=== PATIENT | female | born 1985 | race Caucasian/White ===

== ENCOUNTER → 2017-01-24 08:23 | Outpatient (CLI) | payer BC ==
--- NOTE | 2017-01-24 09:48 | NUR ---
Nutrition education for bariatric surgery post-op: S: Pt states she has been heavy all her adult life. Pt also states her 11 year old daughter is starting to fruit or nut picker her bad eating habits and is now starting to gain too much weight. Pt has already bought a recumbent exercise bicycle and has started using it. Pt drinks diet soda but states she can easily switch to only water. Pt reports she loves starchy foods and eats a lot of them. Pt also states she loves sweet foods. 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 Pt has no concept of what a corret portion size is. Reviewed portion sizes of common foods and discussed nonstarchy vegetables. Reviewed the 5 stages of post-bariatric diet. Reviewed foods for every stage. Stressed the importance of pt to start drinking only water and to eliminate all sweets and carbonated beverages now. Also advised pt to exercise at least 1 hour every day. Pt is to eat three meals every day and not snack between meals. Pt with good understanding of information provided. RDN feels pt is ready to make the needed changes to diet to be successful with weight loss surgery at this time. P: Provided pt with printed diet information and RDN name and phone number. RDN will be avaialbe if needed. Thank you for the consult.
== END ==
LOC: D.FANS 08:23
DX: Z01.818 Encounter for other preprocedural examination (principal)

== ENCOUNTER → 2017-05-07 13:37 | Outpatient (CLI) | payer BC | END | disposition home or self-care (01) | LOC: D.RT 13:37 | DX: R06.00 Dyspnea, unspecified (principal) ==

== ENCOUNTER → 2018-02-15 08:18 | Outpatient (CLI) | payer BC | END | disposition home or self-care (01) | LOC: D.CT 08:18 | DX: R31.21 Asymptomatic microscopic hematuria (principal) ==

== ENCOUNTER → 2018-06-14 19:14 | Outpatient (CLI) | payer BC | END | disposition home or self-care (01) | LOC: D.LABREF 19:14 | DX: R31.9 Hematuria, unspecified (principal) ==